=== PATIENT | male | born 1965 | race Caucasian/White ===

== ENCOUNTER 2019-07-09 22:53 | Emergency (ER) | payer MEDICAID ==
[~2019-07-09] VITALS: Ht 185.4 cm; Wt 129.3 kg
[2019-07-09 23:06] VITALS: Ht 185.4 cm; Wt 129.3 kg
[2019-07-10 01:46] VITALS: BP 150/116
== END 2019-07-10 01:46 | disposition home or self-care (01) ==
LOC: ED 22:53
DX: R60.0 Localized edema (principal); R22.41 Localized swelling, mass and lump, right lower limb
CPT/HCPCS: Q0092

== ENCOUNTER 2019-07-25 14:57 | Emergency (ER) | payer MEDICAID ==
[~2019-07-25] VITALS: Ht 185.4 cm; Wt 127.0 kg
[2019-07-25 15:05] VITALS: BP 108/78; Ht 185.4 cm; Wt 127.0 kg
== END 2019-07-25 18:55 | disposition home or self-care (01) ==
LOC: ED 14:57
DX: S62.102A Fracture of unspecified carpal bone, left wrist, initial encounter for closed fracture (principal); S83.92XA Sprain of unspecified site of left knee, initial encounter; Z98.890 Other specified postprocedural states; W18.30XA Fall on same level, unspecified, initial encounter; Y93.73 Activity, racquet and hand sports; Y92.318 Other athletic court as the place of occurrence of the external cause; Y99.8 Other external cause status

== ENCOUNTER 2019-07-28 22:02 | Emergency (ER) | payer MEDICAID ==
[~2019-07-28] VITALS: Ht 185.4 cm; Wt 128.4 kg
[2019-07-28 22:07] VITALS: Ht 185.4 cm; Wt 128.4 kg
[2019-07-28 23:33] VITALS: BP 158/103
== END 2019-07-28 23:33 | disposition home or self-care (01) ==
LOC: ED 22:02
DX: S62.102D Fracture of unspecified carpal bone, left wrist, subsequent encounter for fracture with routine healing (principal); Z98.890 Other specified postprocedural states; Z13.89 Encounter for screening for other disorder; W18.39XD Other fall on same level, subsequent encounter

== ENCOUNTER 2019-08-18 11:26 | Emergency (ER) | payer MEDICAID ==
[~2019-08-18] VITALS: Ht 185.4 cm; Wt 124.7 kg
[2019-08-18 11:34] VITALS: Ht 185.4 cm; Wt 124.7 kg
[2019-08-18 14:18] VITALS: BP 155/98
== END 2019-08-18 14:18 | disposition home or self-care (01) ==
LOC: ED 11:26
DX: M43.6 Torticollis (principal); Z98.890 Other specified postprocedural states

== ENCOUNTER 2020-05-06 11:03 | Emergency (ER) | payer MEDICAID ==
[~2020-05-06] VITALS: Ht 185.4 cm; Wt 128.8 kg
[2020-05-06 11:16] VITALS: Ht 185.4 cm; Wt 128.8 kg
[2020-05-06 12:09] VITALS: BP 142/90
== END 2020-05-06 12:10 | disposition home or self-care (01) ==
LOC: ED 11:03
DX: J04.0 Acute laryngitis (principal); I10 Essential (primary) hypertension; Z98.890 Other specified postprocedural states